=== PATIENT | female | born 1990 | race Caucasian/White ===

== ENCOUNTER 2018-05-04 15:01 | Emergency (ER) | payer SELFPAY ==
[2018-05-04 15:45] VITALS: O2SAT 98
[2018-05-04] MEDS ORDERED: IBUPROFEN 200 MG TAB PO ONE (16:17)
--- NOTE | 2018-05-04 16:27 | ED.PDOC ---
History of Present Illness - General Chief Complaint: Fever Stated Complaint: Fever, generalized aches Time Seen by Provider: 05/04/18 16:17 Source: patient Exam Limitations: no limitations - History of Present Illness Timing/Duration: intermittent, other - THREE DAYS Fever Severity/Quality: greater than 102 F Fever Therapy BAK[employer] HELPER: Tylenol Associated Symptoms: cough, nausea/vomiting, weakness, other - NECK AND BACK PAIN Review of Systems - Review of Systems Constitutional: States: fever, malaise, weakness EENTM: States: nose congestion Respiratory: States: cough Cardiology: States: no symptoms reported Gastrointestinal/Abdominal: States: no symptoms reported Genitourinary: States: no symptoms reported Musculoskeletal: States: no symptoms reported Skin: States: no symptoms reported Neurological: States: no symptoms reported, see HPI Endocrine: States: no symptoms reported Hematologic/Lymphatic: States: no symptoms reported Past Medical History (General) - Patient Medical History Hx Seizures: No Hx Stroke: No Hx Dementia: No Hx Asthma: No Hx of COPD: No Hx Cardiac Disorders: No Hx Congestive Heart Failure: No Hx Pacemaker: No Hx Hypertension: No Hx Thyroid Disease: No Hx Diabetes: No Hx Gastroesophageal Reflux: Yes Hx Renal Disease: No Hx Cancer: No Hx of HIV: No Hx Hepatitis C: No Hx MRSA: Yes MRSA Source:: Wound Surgical History: tonsillectomy - Vaccination History Hx Tetanus, Diphtheria Vaccination: No Hx Influenza Vaccination: No Hx Pneumococcal Vaccination: No Immunizations Up to Date: Yes - Social History Hx Tobacco Use: No Hx Chewing Tobacco Use: No Hx Alcohol Use: No Hx Substance Use: No Hx Substance Use Treatment: No Hx Depression: No Hx Physical Abuse: No Hx Emotional Abuse: No Hx Suspected Abuse: No - Female History Patient is a Female of Child Bearing Age (10 -59 yrs old): Yes Hx Last Menstrual Period: 10/18/13 Patient : No Expected Date of Delivery:: 07/25/14 Family Medical History - Family History Father Family History: Unknown Living Status: Cause of : drug overdose Paternal Grandparents Name: GRANDMOTHER Living Status: Still Living Hx Family Hypertension: Yes - GRANDMOTHER Physical Exam - Physical Exam General Appearance: Alert, No apparent distress, Well Developed, Well Groomed, Well Hydrated ENT Exam: TMs normal, pharynx normal, nasal congestion, nasal drainage Neck: non-tender, full range of motion, supple, normal inspection Respiratory: chest non-tender, rhonchi Cardiovascular/Chest: normal peripheral pulses Gastrointestinal/Abdominal: normal bowel sounds, non tender, no organomegaly, no pulsatile mass Extremity: normal range of motion, non-tender, normal inspection Neurologic: no motor/sensory deficits, alert, normal mood/affect Skin Exam: normal color, warm/dry Lymphatic: no adenopathy Progress - Progress Progress: 05/04/18 17 :39 05/04/18 14:10 STREP A SCREEN CULTURE Stat Laboratory Results - last 24 hr 05/04/18 05/04/18 05/04/18 14:10 16:30 16:30 WBC 6.7 RBC 5.08 Hgb 14.2 Hct 42.5 MCV 83.7 MCH 28.0 MCHC 33.5 RDW 13.0 Plt Count 213 MPV 8.6 Absolute Neuts (auto) 5.40 Absolute Lymphs (auto) 0.80 L Absolute Monos (auto) 0.40 Absolute Eos (auto) 0.00 Absolute Basos (auto) 0.00 Neutrophils % 80.5 H Lymphocytes % 12.5 L Monocytes % 6.6 Eosinophils % 0.1 L Basophils % 0.3 Sodium 134 L Potassium 3.7 Chloride 102 Carbon Dioxide 26 Anion Gap 9.7 L BUN 8 Creatinine 0.85 BUN/Creatinine Ratio 9.4 L Random Glucose 103 Serum Osmolality 266.8 L Calcium 9.0 Total Bilirubin 0.9 AST 37 ALT 33 Alkaline Phosphatase 94 Serum Total Protein 7.9 Albumin 4.1 Globulin 3.8 H Albumin/Globulin Ratio 1.1 Urine Color Urine Appearance Urine pH Ur Specific [place] Urine Protein Urine Glucose (UA) Urine Ketones Urine Blood Urine Nitrite Urine Bilirubin Urine Urobilinogen Ur Leukocyte Esterase Urine RBC Urine WBC Ur Epithelial Cells Urine Bacteria Group A Strep Rapid Negative 05/04/18 16:41 WBC RBC Hgb Hct MCV MCH MCHC RDW Plt Count MPV Absolute Neuts (auto) Absolute Lymphs (auto) Absolute Monos (auto) Absolute Eos (auto) Absolute Basos (auto) Neutrophils % Lymphocytes % Monocytes % Eosinophils % Basophils % Sodium Potassium Chloride Carbon Dioxide Anion Gap BUN Creatinine BUN/Creatinine Ratio Random Glucose Serum Osmolality Calcium Total Bilirubin AST ALT Alkaline Phosphatase Serum Total Protein Albumin Globulin Albumin/Globulin Ratio Urine Color Yellow Urine Appearance Clear Urine pH 6.0 Ur Specific [place] 1.010 Urine Protein Negative Urine Glucose (UA) Negative Urine Ketones Negative Urine Blood Negative Urine Nitrite Negative Urine Bilirubin Negative Urine Urobilinogen 2.0 H Ur Leukocyte Esterase Negative Urine RBC 0 Urine WBC 0 Ur Epithelial Cells 0 Urine Bacteria 0 Group A Strep Rapid Departure - Departure Clinical Impression: Acute maxillary sinusitis Qualifiers: Recurrence: recurrent Qualified Code(s): J01.01 - Acute recurrent maxillary sinusitis Time of Disposition: 17:43 Disposition: Discharge to Home or Self Care Condition: Good Departure Forms: ED Discharge - Pt. Copy, Patient Portal Self Enrollment Instructions: Sinusitis, Adult (DC) Diet: resume usual diet Referrals: Jimi Abebe MD [Primary Care Provider] - 1-2 Weeks Prescriptions: Azithromycin [Zithromax Z-Jagdish] 250 mg PO DAILY #7 tab Home Medications: Ambulatory Orders Sulfa/Trimeth 800/160 (Ds) Tab [Bactrim DS Tab] 1 ea PO BID #20 tab 03/28/15 hydrOXYzine HCl [Atarax] 25 mg PO QID PRN #20 tab 03/28/15 predniSONE 40 mg PO DAILY #10 tab 03/28/15 Azithromycin [Zithromax Z-Jagdish] 250 mg PO DAILY #7 tab 05/04/18
--- NOTE | 2018-05-04 16:33 | RAD ---
EXAM DESCRIPTION: Chest,1 View CLINICAL HISTORY: 27 years Female FEVER, COUGH COMPARISON: None. FINDINGS: The cardiomediastinal silhouette appears unremarkable. No consolidating infiltrates or pleural effusions. No pneumothorax. IMPRESSION: No acute abnormality is identified. Electronically signed by: Leatha Cervantes MD 05/04/2018 4:32 PM CDT
[2018-05-04] MEDS ORDERED: cefTRIAXone SODIUM 1 GM in SODIUM CHL 0.9% 50ML MIN-BAG+ 50 ML IVPB ONE (17:41)
[2018-05-04] MEDS ORDERED: cefTRIAXone SODIUM 1 GM VIAL IM ONE (17:47)
[2018-05-04] MEDS ORDERED: LIDOCAINE 1% 10 ML VIAL INJ ONE (17:49)
[2018-05-04 18:16] VITALS: BP 119/76; TEMP 99
== END 2018-05-04 18:15 | disposition home or self-care (01) ==
LOC: ER 15:01
DX: J01.01 Acute recurrent maxillary sinusitis (principal); M54.9 Dorsalgia, unspecified; M54.2 Cervicalgia; K21.9 Gastro-esophageal reflux disease without esophagitis
CPT/HCPCS: 36415; 71045; 80053; 81001; 85025; 87070; 87502; 87880; J0696

== ENCOUNTER 2019-06-30 17:36 | Emergency (ER) | payer SELFPAY ==
[2019-06-30] MEDS ORDERED: AZITHROMYCIN 250 MG TAB PO ONE (17:48)
[2019-06-30] MEDS ORDERED: predniSONE 20 MG TAB PO ONE (17:48)
[2019-06-30 17:51] VITALS: BP 137/86; TEMP 97.5; O2SAT 97
--- NOTE | 2019-06-30 17:51 | ED.PDOC ---
History of Present Illness - General Chief Complaint: General Stated Complaint: body ache, fever, cough, sore throat. Time Seen by Provider: 06/30/19 17:48 Source: patient Exam Limitations: no limitations - History of Present Illness Initial Comments: The patient's 28-year-old female presenting to emergency room secondary to cough and intermittent fevers for the last 2 weeks. Minimally productive cough. Mild sore throat. She does have chronic allergy issues and has had a runny nose. She reports fevers up to 102 but intermittently. No chest pain except with cough. No rub shortness of breath. No history of asthma. She is moving air well. No acute distress. Timing/Duration: other - 2 weeks Severity: moderate Improving Factors: nothing Worsening Factors: nothing Associated Symptoms: cough, fever/chills, loss of appetite, malaise Allergies/Adverse Reactions: Allergies Penicillins Allergy (Unknown, Verified 06/27/14 19:34) Home Medications: Ambulatory Orders Azithromycin 500 mg PO DAILY #5 tab 06/30/19 predniSONE [Prednisone] 20 mg PO DAILY #3 tab 06/30/19 Review of Systems - Review of Systems Constitutional: States: chills, fever, malaise EENTM: States: nose congestion - long-standing Respiratory: States: cough Cardiology: States: no symptoms reported Gastrointestinal/Abdominal: States: no symptoms reported Genitourinary: States: no symptoms reported Musculoskeletal: States: no symptoms reported Skin: States: no symptoms reported Neurological: States: no symptoms reported Endocrine: States: no symptoms reported All other Systems: No Change from Baseline Past Medical History (General) - Patient Medical History Hx Seizures: No Hx Stroke: No Hx Dementia: No Hx Asthma: No Hx of COPD: No Hx Cardiac Disorders: No Hx Congestive Heart Failure: No Hx Pacemaker: No Hx Hypertension: No Hx Thyroid Disease: No Hx Diabetes: No Hx Gastroesophageal Reflux: Yes Hx Renal Disease: No Hx Cancer: No Hx of HIV: No Hx Hepatitis C: No Hx MRSA: Yes MRSA Source:: Wound - Vaccination History Hx Tetanus, Diphtheria Vaccination: No Hx Influenza Vaccination: No Hx Pneumococcal Vaccination: No - Social History Hx Tobacco Use: No Hx Chewing Tobacco Use: No Hx Alcohol Use: No Hx Substance Use: No Hx Substance Use Treatment: No Hx Depression: No Hx Physical Abuse: No Hx Emotional Abuse: No Hx Suspected Abuse: No - Female History Hx Last Menstrual Period: 10/18/13 Patient : No Expected Date of Delivery:: 07/25/14 Family Medical History - Family History Father Family History: Unknown Living Status: Cause of : drug overdose Paternal Grandparents Name: GRANDMOTHER Living Status: Still Living Hx Family Hypertension: Yes - GRANDMOTHER Physical Exam - Physical Exam General Appearance: Alert, No apparent distress Eye Exam: bilateral normal Ears, Nose, Throat: hearing grossly normal, nasal congestion Neck: full range of motion, supple Respiratory: no respiratory distress, no accessory muscle use, rhonchi Cardiovascular/Chest: normal peripheral pulses, regular rate, rhythm, no edema Peripheral Pulses: radial,right: 2+, radial,left: 2+ Gastrointestinal/Abdominal: non tender - obese, soft Rectal Exam: deferred Back Exam: no CVA tenderness, no vertebral tenderness Extremity: normal range of motion, non-tender, no pedal edema, normal capillary refill Neurologic: alert, normal mood/affect, oriented x 3 Skin Exam: normal color Comments: Vital Signs - 24 hr 06/30/19 17:40 Temperature 97.5 F L Pulse Rate [ 82 Pulse ox] Respiratory 20 Rate Blood Pressure 137/86 [L brachial] O2 Sat by Pulse 97 Oximetry Progress - Progress Progress: 06/30/19 17:51 the patient is a 28-year-old female presenting to emergency room secondary to what appears to be a bronchitis for the last few weeks. While this is possibly viral, due to the persistent nature, we are going to cover for atypical bacteria that can cause a similar picture with azithromycin for the next 5 days. She will also be placed on 3 days of oral prednisone to help reduce inflammation in her sinuses related to her allergies. This should help reduce postnasal drip. She needs to follow back up with her primary care doctor towards the end of the coming week. ER warnings were given. chin silva [phone] Departure - Departure Clinical Impression: Bronchitis Disposition: Discharge to Home or Self Care Condition: Fair Departure Forms: ED Discharge - Pt. Copy, Patient Portal Self Enrollment Instructions: Acute Bronchitis, Adult (DC) Diet: regular diet Activity: increase activity as tolerated Prescriptions: Azithromycin 500 mg PO DAILY #5 tab predniSONE [Prednisone] 20 mg PO DAILY #3 tab Home Medications: Ambulatory Orders Azithromycin 500 mg PO DAILY #5 tab 06/30/19 predniSONE [Prednisone] 20 mg PO DAILY #3 tab 06/30/19 Additional Instructions: the patient is a 28-year-old female presenting to emergency room secondary to what appears to be a bronchitis for the last few weeks. While this is possibly viral, due to the persistent nature, we are going to cover for atypical bacteria that can cause a similar picture with azithromycin for the next 5 days. She will also be placed on 3 days of oral prednisone to help reduce inflammation in her sinuses related to her allergies. This should help reduce postnasal drip. She needs to follow back up with her primary care doctor towards the end of the coming week. ER warnings were given.
== END 2019-06-30 18:01 | disposition home or self-care (01) ==
LOC: ER 17:36
DX: J40 Bronchitis, not specified as acute or chronic (principal); K21.9 Gastro-esophageal reflux disease without esophagitis; Z88.0 Allergy status to penicillin
CPT/HCPCS: J7512; Q0144